=== PATIENT | male | born 1975 | race Caucasian/White ===

== ENCOUNTER 2022-01-24 17:33 | Emergency (ER) | payer BC ==
[~2022-01-24] VITALS: Ht 177.8 cm; Wt 90.9 kg
[2022-01-24 17:54] VITALS: BP 157/85
[2022-01-24] MEDS ORDERED: ketorolac trometh. 30mg/ml inj. IV ONE (19:50)
[2022-01-24] MEDS ORDERED: HYDROcodone/acetaminophen 10/325mg tab PO ONE (19:50)
[2022-01-24] MEDS ORDERED: CefTRIAXone 2gm/NS 100ml IVPB 100 ML IV ONE (20:45)
[2022-01-24] MEDS ORDERED: SULF1TAB49 PO (20:47)
[2022-01-24] MEDS ORDERED: HYDR-3965 PO (20:47)
[2022-01-24 21:11] LABS: CLARITY,URINE CLEAR (Clear); GLUCOSE, URINE NEGATIVE (Neg); KETONES,URINE NEGATIVE (Neg); LEUKOCYTE ESTERASE ,URINE NEGATIVE (Neg); NITRITES, URINE NEGATIVE (Neg); OCCULT BLOOD,URINE NEGATIVE (Neg); PROTEIN,URINE NEGATIVE (Neg); UROBILINOGEN,URINE 0.2 E.U/dL (0.2-1.0)
[2022-01-24 21:21] LABS: COLOR,URINE STRAW (Yellow); UA COLLECTION TYPE CLN CATCH MIDSTREAM
--- NOTE | 2022-01-24 21:23 | NUR ---
abx finished. iv dc'd pt being discharged. dressing applied
== END 2022-01-24 21:27 | disposition home or self-care (01) ==
LOC: ER 17:35
DX: N45.4 Abscess of epididymis or testis (principal)
CPT/HCPCS: 76770; 76870; 81003; 93976; 96365; 96375; 99284; J0696; J1885; 99283